=== PATIENT | male | born 1970 | race Caucasian/White ===

== ENCOUNTER 2021-01-29 10:57 | Emergency (ER) | payer OTHER ==
[~2021-01-29] VITALS: Ht 190.5 cm; Wt 124.7 kg
[~2021-01-29 10:57] MED LIST: ARIP15 PO; ARIPIPRAZOLE15 MG PO; CYCL10 PO; DOXE25 PO; DULO60 PO; DULOXETINE HCL60 MG PO; FURO20 PO; HYDPAM25; HYDPAM25 PO; HYDR1TAB94; Hydrocodone-Ap1 EA23 PO; INSDET100 SC; Percocet 10-321 EACH PO; SUMA25 PO; TOPI50 PO; Valium5 MG PO
[2021-01-29 11:48] LABS: BASOPHILS ABSOLUTE AUTO 0.03 K/mm3 (0.00-0.23); BASOPHILS PERCENT AUTO 0 % (0-2); EOSINOPHILS ABSOLUTE AUTO 0.15 K/mm3 (0.00-0.68); EOSINOPHILS PERCENT AUTO 2 % (0-6); Hematocrit 38.2 % (37.0-53.0); Hemoglobin 13.1 g/dL (13.5-17.5); IMMATURE GRAN ABSOLUTE AUTO 0.07 K/mm3 (0.00-0.10); IMMATURE GRAN PERCENT AUTO 1 % (0-1); LYMPHOCYTES ABSOLUTE AUTO 0.98 K/mm3 (0.84-5.20); LYMPHOCYTES PERCENT AUTO 10 % (21-46); MONOCYTES ABSOLUTE AUTO 1.28 K/mm3 (0.16-1.47); MONOCYTES PERCENT AUTO 13 % (4-13); Mean Corpuscular HGB 27.6 pg (26.0-34.0); Mean Corpuscular HGB Conc 34.3 g/dL (31.5-36.5); Mean Corpuscular Volume 81 fL (80-100); Mean Platelet Volume 9.7 fL (9.1-12.4); NEUTROPHILS ABSOLUTE AUTO 7.54 K/mm3 (1.96-9.15); NEUTROPHILS PERCENT AUTO 75 % (41-73); Platelet Count 443 K/mm3 (150-400); RDW Coefficient Variation 14.2 % (11.7-14.2); RDW Standard Deviation 41.5 fL (35.1-46.3); Red Blood Cell Count 4.74 M/mm3 (4.30-5.90); White Blood Cell Count 10.05 K/mm3 (4.00-11.30)
[2021-01-29 12:10] LABS: Alanine Aminotransfer (ALT/SGP 27 U/L (12-78); Albumin, Blood 2.4 g/dL (3.4-5.0); Albumin/Globulin Ratio 0.4 (0.8-1.8); Alk Phos 99 U/L (50-136); Anion Gap 8 mmol/L (6-16); Aspartate Aminotrans (AST/SGOT 22 U/L (12-37); Bilirubin, Total 0.7 mg/dL (0.1-1.0); Blood Urea Nitrogen 8 mg/dL (8-24); CO2, Blood 28 mmol/L (21-32); Calcium, Blood 8.9 mg/dL (8.5-10.1); Chloride, Blood 99 mmol/L (98-108); Creatinine, Blood 0.53 mg/dL (0.60-1.20); Globulin, Blood 5.5 g/dL (2.2-4.0); Glomerular Filtration Rate >60 (60-); Glucose, Blood 164 mg/dL (70-99); Potassium, Blood 2.8 mmol/L (3.5-5.5); Sodium, Blood 135 mmol/L (136-145); Total Protein, Blood 7.9 g/dL (6.4-8.2)
[2021-01-29] MEDS ORDERED: DECADRON6 M1 PO (14:55)
[2021-01-29] MEDS ORDERED: ONDA4ODT MM (15:35)
== END 2021-01-29 16:03 | disposition home or self-care (01) ==
LOC: ER 10:57
PROVIDERS: Emergency Medicine
DX: U07.1 COVID-19 (principal); R09.02 Hypoxemia; R79.89 Other specified abnormal findings of blood chemistry; E11.9 Type 2 diabetes mellitus without complications; Z88.8 Allergy status to other drugs, medicaments and biological substances; Z79.899 Other long term (current) drug therapy; Z79.4 Long term (current) use of insulin
CPT/HCPCS: 36415; 71045; 80053; 83735; 83880; 84145; 84484; 85025; 86140; 93005; 93010; 96374; 99284-25; A9270; J1100

== ENCOUNTER → 2021-12-17 | Outpatient (CLI) | payer OTHER ==
[~2021-12-17] MED LIST changes: +DECADRON6 M1 PO; +ONDA4ODT MM
== END | disposition home or self-care (01) ==
LOC: LAB SHORT 14:45 → LAB 14:45
DX: K21.9 Gastro-esophageal reflux disease without esophagitis (principal)
CPT/HCPCS: 87338

== ENCOUNTER → 2021-12-18 | Outpatient (CLI) | payer OTHER | END | disposition home or self-care (01) | LOC: LAB SHORT 13:40 → LAB 13:40 | DX: E11.65 Type 2 diabetes mellitus with hyperglycemia (principal); E11.42 Type 2 diabetes mellitus with diabetic polyneuropathy; Z79.4 Long term (current) use of insulin | CPT/HCPCS: 82043 ==

== ENCOUNTER 2025-05-13 15:06 | Observation (INO) | payer OTHER ==
[~2025-05-13] VITALS: Ht 190.5 cm; Wt 121.1 kg
[~2025-05-13 15:06] MED LIST changes: +ATOR40TA PO; +BACL10 PO; +GLUCOPHAGE1000 M1 PO; +INSULANI; +K-Dur10 MEQ; +NOVOLOG FL100 UNIT/3; +OLAN5 PO; +OMEP20ER PO; +ONDA4 PO; +PRAZ1 PO; +PRAZ5 PO; +PREG75 PO; +TRAZ50 PO; +TRULICITY3 MG/0.5 M; +VENL150ER PO
[2025-05-13 15:27] LABS: BASOPHILS ABSOLUTE AUTO 0.06 K/mm3 (0.00-0.23); BASOPHILS PERCENT AUTO 1 % (0-2); EOSINOPHILS ABSOLUTE AUTO 0.05 K/mm3 (0.00-0.68); EOSINOPHILS PERCENT AUTO 1 % (0-6); Hematocrit 44.8 % (37.0-53.0); Hemoglobin 15.2 g/dL (13.5-17.5); IMMATURE GRAN ABSOLUTE AUTO 0.10 K/mm3 (0.00-0.10); IMMATURE GRAN PERCENT AUTO 1 % (0-1); LYMPHOCYTES ABSOLUTE AUTO 0.86 K/mm3 (0.84-5.20); LYMPHOCYTES PERCENT AUTO 8 % (21-46); MONOCYTES ABSOLUTE AUTO 0.88 K/mm3 (0.16-1.47); MONOCYTES PERCENT AUTO 8 % (4-13); Mean Corpuscular HGB Conc 33.9 g/dL (31.5-36.5); Mean Corpuscular Volume 83 fL (80-100); NEUTROPHILS ABSOLUTE AUTO 8.86 K/mm3 (1.96-9.15); NEUTROPHILS PERCENT AUTO 82 % (41-73); NRBC ABSOLUTE 0.00 K/mm3 (0.00-0.02); NRBC Auto 0.0 /100 WBC (0.0-0.2); Platelet Count 197 K/mm3 (150-400); RDW Coefficient Variation 14.6 % (11.7-14.2); RDW Standard Deviation 43.8 fL (35.1-46.3)
[2025-05-13] MEDS ORDERED: FentaNYL Citrate 50 MCG/ML 2 ML Injection IV ONE (15:35)
[2025-05-13] MEDS ORDERED: Ketorolac Tromethamine 30mg Vial IV ONE (15:35)
[2025-05-13] MEDS ORDERED: Colchicine 0.6 MG TAB PO ONE (15:40)
[2025-05-13 15:49] LABS: Alanine Aminotransfer (ALT/SGP 41.0 U/L (12-78); Albumin, Blood 3.7 g/dL (3.4-5.0); Albumin/Globulin Ratio 0.8 (0.8-1.8); Anion Gap 17.0 mmol/L (3-11); Aspartate Aminotrans (AST/SGOT 16.0 U/L (12-37); Bilirubin, Total 0.5 mg/dL (0.1-1.0); Blood Urea Nitrogen 9.0 mg/dL (8-24); CO2, Blood 16.0 mmol/L (21-32); Calcium, Blood 9.7 mg/dL (8.5-10.1); Chloride, Blood 99.0 mmol/L (98-108); Creatinine, Blood 0.52 mg/dL (0.60-1.20); Globulin, Blood 4.6 g/dL (2.2-4.0); Glucose, Blood 305.0 mg/dL (70-99); Magnesium, Blood 2.0 mg/dL (1.6-2.4); Potassium, Blood 3.5 mmol/L (3.5-5.5); Sodium, Blood 128.0 mmol/L (136-145); Total Protein, Blood 8.3 g/dL (6.4-8.2)
[2025-05-13] MEDS ORDERED: Morphine Sulfate 4 MG/1 ML Injection IV ONE (16:45)
[2025-05-13 17:08] LABS: pH Blood Venous 7.30 (7.34-7.37)
[2025-05-13] MEDS ORDERED: HYDROmorphone HCl/Pf 1MG SYR IV ONE (17:30)
[2025-05-13] MEDS ORDERED: Insulin Regular 100 Unit/ML 1ML Dose IV ONE (17:30)
[2025-05-13] MEDS ORDERED: NS 1,000 ML IV SCH (19:20)
[2025-05-13] MEDS ORDERED: FLU VACC TS2025-26(6MOS UP)/PF 45 MCG/0.5 ML SYRINGE IM SCH (19:20)
[2025-05-13] MEDS ORDERED: Ondansetron HCl 2 MG / ML 2ML Vial IV PRN (19:20)
[2025-05-13] MEDS ORDERED: Insulin Human Lispro 100 Units/ML 3ML Syringe SC SCH (20:00)
[2025-05-13 20:08] LABS: Anion Gap 13.0 mmol/L (3-11); Blood Urea Nitrogen 11.0 mg/dL (8-24); CO2, Blood 20.0 mmol/L (21-32); Calcium, Blood 9.6 mg/dL (8.5-10.1); Chloride, Blood 101.0 mmol/L (98-108); Creatinine, Blood 0.51 mg/dL (0.60-1.20); Glucose, Blood 154.0 mg/dL (70-99); Potassium, Blood 3.6 mmol/L (3.5-5.5); Sodium, Blood 130.0 mmol/L (136-145)
[2025-05-13] MEDS ORDERED: Potassium Chl 20MEQ/Water100ML 100 ML IV STA (20:09)
[2025-05-13] MEDS ORDERED: Colchicine 0.6 MG TAB PO SCH (21:00)
[2025-05-13 22:40] LABS: Anion Gap 14.0 mmol/L (3-11); Blood Urea Nitrogen 11.0 mg/dL (8-24); CO2, Blood 17.0 mmol/L (21-32); Calcium, Blood 9.2 mg/dL (8.5-10.1); Chloride, Blood 100.0 mmol/L (98-108); Creatinine, Blood 0.49 mg/dL (0.60-1.20); Glucose, Blood 208.0 mg/dL (70-99); Potassium, Blood 4.4 mmol/L (3.5-5.5); Sodium, Blood 127.0 mmol/L (136-145)
[2025-05-13 22:42] VITALS: BP 149/98
[2025-05-13 23:54] VITALS: BP 146/110
--- NOTE | 2025-05-14 03:33 | NUR ---
ADMIT NOTE @ APPROX 2240 REPORT RECEIVED BY THIS RN FROM [facility] @ APPROX 2215 PT ARRIVED TO PCU 14 @ APPROX 2240 APPROX AND SELF TRANSFERED TO PCU BED. PT A&O X 4, PT REPORTING CHEST PAIN JUST BELOW BREAST ON LEFT SIDE THAT IS BETTER THAN WHEN HE CAME IN/ STORAGE ADMINISTRATOR NOTIFIED THIS RN OF S-T CHANGES/ EKG OBTAIN WHEN PT ARRIVED TO UNIT/ MD NOTIFIED OF EKG FINDINGS/ NO NEW ORDERS.
[2025-05-14 03:44] VITALS: BP 148/94
[2025-05-14 04:11] LABS: Influenza A/2009-H1 Not Detected (NOT DETECT); SARS-Cov-2 (COVID-19), BioFire Not Detected (NOT DETECT)
[2025-05-14 04:33] LABS: BASOPHILS ABSOLUTE AUTO 0.06 K/mm3 (0.00-0.23); BASOPHILS PERCENT AUTO 1 % (0-2); EOSINOPHILS ABSOLUTE AUTO 0.05 K/mm3 (0.00-0.68); EOSINOPHILS PERCENT AUTO 0 % (0-6); Hematocrit 43.2 % (37.0-53.0); Hemoglobin 14.5 g/dL (13.5-17.5); IMMATURE GRAN ABSOLUTE AUTO 0.08 K/mm3 (0.00-0.10); IMMATURE GRAN PERCENT AUTO 1 % (0-1); LYMPHOCYTES ABSOLUTE AUTO 1.34 K/mm3 (0.84-5.20); LYMPHOCYTES PERCENT AUTO 11 % (21-46); MONOCYTES ABSOLUTE AUTO 1.79 K/mm3 (0.16-1.47); MONOCYTES PERCENT AUTO 14 % (4-13); Mean Corpuscular HGB Conc 33.6 g/dL (31.5-36.5); Mean Corpuscular Volume 84 fL (80-100); NEUTROPHILS ABSOLUTE AUTO 9.46 K/mm3 (1.96-9.15); NEUTROPHILS PERCENT AUTO 74 % (41-73); NRBC ABSOLUTE 0.00 K/mm3 (0.00-0.02); NRBC Auto 0.0 /100 WBC (0.0-0.2); RDW Coefficient Variation 14.7 % (11.7-14.2); RDW Standard Deviation 45.1 fL (35.1-46.3)
[2025-05-14 04:35] LABS: Platelet Count 197 K/mm3 (150-400)
[2025-05-14 04:39] LABS: Alanine Aminotransfer (ALT/SGP 43.0 U/L (12-78); Albumin, Blood 2.9 g/dL (3.4-5.0); Albumin/Globulin Ratio 0.6 (0.8-1.8); Anion Gap 15.0 mmol/L (3-11); Aspartate Aminotrans (AST/SGOT 27.0 U/L (12-37); Bilirubin, Total 0.6 mg/dL (0.1-1.0); Blood Urea Nitrogen 11.0 mg/dL (8-24); CO2, Blood 15.0 mmol/L (21-32); Calcium, Blood 9.0 mg/dL (8.5-10.1); Chloride, Blood 101.0 mmol/L (98-108); Creatinine, Blood 0.42 mg/dL (0.60-1.20); Globulin, Blood 4.5 g/dL (2.2-4.0); Glucose, Blood 252.0 mg/dL (70-99); Magnesium, Blood 2.1 mg/dL (1.6-2.4); Potassium, Blood 4.2 mmol/L (3.5-5.5); Sodium, Blood 127.0 mmol/L (136-145); Total Protein, Blood 7.4 g/dL (6.4-8.2)
--- NOTE | 2025-05-14 06:03 | NUR ---
SHIFT SUMMARY PT A&O X 4, ABLE TO MAKE NEEDS KNOWN, CALLS APPROPRIATELY, REPOSITIONING SELF IN BED, PARAPALEGIC FROM [place] DISK IN 1994 , REPORTS USING WHEEL CHAIR AT BASELINE. CONTINUOUS SPO2, SPO2 GREATER THAN 92% RA, NO SIGNS OF RESPIRATORY DISTRESS NOTED. CONTINUOUS TELE MONITORING, SINUS HR 100-110 S, BP STABLE WITH MAP GREATER THAN 65, CAP REFILL WNL, PULSES PRESENT T/O, PT STILL REPORTING CHEST PAIN JUST BELOW LEFT BREAST. BOWEL TONES PRESENT IN ALL 4Q, PT REPORTS NOT HAVING A BM FOR A FEW DAYS WHICH CAN BE NORMAL FOR HIM, PT STATES HE HAS TO SELF STIMULATE TO HAVE A BM. PT SELF CATHED THIS SHIFT/ PT REPORT SELF CATHING AT HOME EVERY 2 HOURS WHILE AWAKE, URINE YELLOW. BED LOWEST POSITION, CALL LIGHT IN REACH, AWAITING TO GIVE REPORT TO ONCOMING RN.
--- NOTE | 2025-05-14 07:56 | NUR ---
Very agreeable and pleasantly conversant patient, sitting up eating breakfast at this time. He has pain in his back and chest. Does not appear to be having any dyspnea nor distress. Bath Mix Operator Dr. Chen rounded on him. Plan is for echocardiogram today. Pt was given some scheduled meds this morning. CBG 215, covered per correction scale. Waiting for pharmacy to send the ibuprofen dose.
[2025-05-14 08:15] VITALS: BP 158/89
--- NOTE | 2025-05-14 08:31 | NUR ---
The pt states that he is very tired, but states thankful that he might get to go home today, after talking with the copyright expert. Explained that Echocardiogram will be done today, and we will also wait for the hospitalist to round on him to know for sure what the plan is today, discharge or otherwise. Pt states he is pt of Venkatesh Pagan at [facility]. Scheduled medications were given. Pt asked for lights off and door closed so he can sleep some.
[2025-05-14 08:36] VITALS: BP 15/89
[2025-05-14] MEDS ORDERED: Enoxaparin 40 MG/0.4 ML SYR SC SCH (09:00)
--- NOTE | 2025-05-14 09:01 | NUR ---
Pt's mom Genny called, asking for an update. The pt appears to be sleeping comfortably right now in the room.
[2025-05-14] MEDS ORDERED: BUSP10 PO (11:16)
[2025-05-14] MEDS ORDERED: BUPR150ER PO (11:16)
[2025-05-14] MEDS ORDERED: OLAN20 MM (11:17)
[2025-05-14] MEDS ORDERED: TEMA30 PO (11:17)
[2025-05-14] MEDS ORDERED: PRAZ2 PO (11:17)
[2025-05-14] MEDS ORDERED: INSULANPEN SC (11:18)
[2025-05-14] MEDS ORDERED: METF500C PO (11:19)
[2025-05-14] MEDS ORDERED: ATORVASTATIN CA40 M1 PO (11:20)
[2025-05-14] MEDS ORDERED: NOVOLOG100 UNIT/3 SC (11:21)
[2025-05-14] MEDS ORDERED: BACL10 PO (11:22)
[2025-05-14] MEDS ORDERED: OMEP20ER PO (11:22)
[2025-05-14] MEDS ORDERED: TRULICITY3 MG/0.5 M SC (11:22)
[2025-05-14] MEDS ORDERED: RIZATRIPTAN10 MG SL (11:23)
[2025-05-14] MEDS ORDERED: PREG150 PO (11:23)
[2025-05-14] MEDS ORDERED: HYDROcodone 7.5-APAP 325 TAB PO PRN (12:10)
--- NOTE | 2025-05-14 13:29 | NUR ---
Pt was in significant pain after having the echocardiogram due to positioning during the imaging. Given [place] around 12:30 pm and at this time he appears to be sleeping very comfortably in the bed, with his mom Genny at the bedside. He said that he lives with chronic pain, often 8/10 due to his chronic back problems, but the chest pain is of course acute.
[2025-05-14 14:33] VITALS: BP 158/77
--- NOTE | 2025-05-14 14:39 | NUR ---
pt self transferred from the bed to the wheelchair. He states that he is comfortable there in the wheelchair. His mom is also in the room with him.
[2025-05-14] MEDS ORDERED: IBUP600 PO (16:25)
[2025-05-14] MEDS ORDERED: COLCHICINE0.6 MG PO (16:25)
--- NOTE | 2025-05-14 17:15 | NUR ---
Discharge instructions, new prescriptions were reviewed with the patient and his mom (caregiver) at the bedside. Teri lift used to transfer the patient from bed to his own sports wheelchair. Prescriptions were called into [facility] earlier, which closes at 8 pm, so the pt was going to get his meds filled and picked up before returning home. His mom accompanyied him to their private vehicle.
[2025-05-15 19:17] LABS: HEPATITIS B SURFACE ANTIBODY <3.10 IU/L; HEPATITIS BE ANTIBODY Negative (Negative); HEPATITIS BE ANTIGEN Negative (Negative)
[2025-05-16 07:30] LABS: HIV 1,2 COMBO ANTIGEN/ANTIBODY Negative (Negative)
== END 2025-05-14 17:15 | disposition home or self-care (01) ==
LOC: ER 15:06 → PCU 15:07 → ERHOLD 15:07 → PCU 22:30
PROVIDERS: Nurse Practitioner Acute Care; Student in an Organized Health Care Education/Training Program; ADMIT Student in an Organized Health Care Education/Training Program
DX: E11.10 Type 2 diabetes mellitus with ketoacidosis without coma (principal); I30.9 Acute pericarditis, unspecified; E78.5 Hyperlipidemia, unspecified; I10 Essential (primary) hypertension; G82.20 Paraplegia, unspecified; G47.33 Obstructive sleep apnea (adult) (pediatric); Z87.891 Personal history of nicotine dependence; Z88.8 Allergy status to other drugs, medicaments and biological substances; Z79.4 Long term (current) use of insulin; Z79.84 Long term (current) use of oral hypoglycemic drugs; Z79.899 Other long term (current) drug therapy
CPT/HCPCS: 0202U; 36415; 71046; 80048; 80053; 82010; 82803; 82947; 83735; 84145; 84484; 85025; 85651; 86140; 86707; 87340; 87350; 87389; 93005; 93010; 93306; 96361; 96365; 96366; 96372; 96375; 99285-25; A9270; G0378; J1171; J1650; J1815; J1885; J2270; J3010; J3480; J7030; J7120